=== PATIENT | male | born 1990 | race Caucasian/White ===

== ENCOUNTER 2018-01-05 09:46 | Outpatient (CLI) | payer OTHER | END 2018-01-05 09:49 | disposition home or self-care (01) | LOC: SONOGRAMA 09:46 | DX: E04.2 Nontoxic multinodular goiter (principal) ==

== ENCOUNTER 2020-09-22 10:19 | Outpatient (CLI) | payer OTHER | END 2020-09-22 10:29 | disposition home or self-care (01) | LOC: SONOGRAMA 10:19 | PROVIDERS: ATTEND Pathology Anatomic Pathology & Clinical Pathology | DX: E04.1 Nontoxic single thyroid nodule (principal) ==